=== PATIENT | female | born 2000 | race Caucasian/White ===

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

== ENCOUNTER 2022-10-25 21:34 | Emergency (ER) | payer BC, OTHER ==
[~2022-10-25] VITALS: Ht 157.5 cm; Wt 63.9 kg
[2022-10-25 21:36] VITALS: BP 118/80; TEMP 98.6; O2SAT 98
== END 2022-10-26 01:48 | disposition home or self-care (01) ==
LOC: M ED 21:34
DX: T19.2XXA Foreign body in vulva and vagina, initial encounter (principal); X58.XXXA Exposure to other specified factors, initial encounter; Y92.89 Other specified places as the place of occurrence of the external cause; Y93.89 Activity, other specified; Y99.8 Other external cause status